=== PATIENT | female | born 1950 | race Caucasian/White ===

== ENCOUNTER 2024-01-26 12:19 | Emergency (ER) | payer MEDICARE, SELFPAY ==
[2024-01-26 12:24] VITALS: BP 151/85
[2024-01-26 13:13] VITALS: BMI 22.0
[2024-01-26 13:15] VITALS: BP 143/63
[2024-01-26 13:32] LABS: % Basophils 0.3 % (0-2); % Eosinophils 1.7 % (0-6); % Immature Granulocytes 0.1 % (0-0.5); % Lymphocytes 28.4 % (20.5-51.1); % Monocytes 9.5 % (1.7-9.3); Absolute Eosinophils 0.2 10^3/uL (0-0.7); Absolute Lymphocytes 2.6 10^3/uL (1.2-3.4); Absolute Monocytes 0.9 10^3/uL (0.1-0.6); Absolute Neutrophils 5.5 10^3/uL (1.4-6.5); Hematocrit 37.6 % (37.0-47.0); Hemoglobin 13.2 g/dL (12.0-16.0); Mean Corp Hgb Conc. 35.1 g/dL (33.0-37.0); Mean Platelet Volume 9.3 fL (7.4-10.4); Nucleated Red Blood Cells % 0 %; Platelet Count 286 10^3/uL (130-400); Red Cell Dist. Width 12.9 % (11.5-14.5); White Blood Cell Count 9.2 10^3/uL (4.8-10.8)
[2024-01-26 13:45] LABS: ALT (SGPT) 13 U/L (0-35); AST (SGOT) 24 U/L (14-36); Albumin 4.1 g/dl (3.5-5.0); Alkaline Phosphatase 77 U/L (38-126); Blood Urea Nitrogen 19 mg/dl (7-17); Calcium 9.8 mg/dl (8.4-10.2); Carbon Dioxide 26 mmol/L (22-30); Chloride 108 mmol/L (98-107); Estimated Creatinine Clearance 51 ml/min; Glucose 101 mg/dl (70-99); Potassium 4.1 mmol/L (3.5-5.1); Sodium 139 mmol/L (135-145); Total Bilirubin 0.4 mg/dl (0.2-1.3); Total Protein 6.7 g/dl (6.3-8.2); eGFR > 60.00
--- NOTE | 2024-01-26 13:56 | ED.GENMED ---
History of Present Illness
<Anjelica Fox PA-C - Last Filed: 01/27/24 12:59>
General
Chief Complaint: Bowel Problem
Source: patient
Exam Limitations: none
Time Seen by Provider: 01/26/24 13:11
Nursing documentation reviewed up to this point in time: agreed with
Travel History
Have you had any contact with someone who has COVID-19?: No
Do you have any symptoms of coronavirus? Fever > 100 degrees, chills, cough, shortness of breath, sore throat, loss of taste or smell, muscle aches, or headache?: No
History of Present Illness
History of Present Illness:
pt is a 73 y/o F with h/o BTL complicated by uterine injury, kiidney stones, smoking, vaping
here with abd bloating and consitpation for months, worsening
pt says she spends most of her days trying to get herself to poop and she usually only goes minimally . she has never tried any oral agents, but usually suppositories or enemas
she has never had a colonoscopy
she denies fever, chills, vomiting, nausea, cp, sob.
nothing different today but she is tired of feelign this way
has lack of appetite.
Past History
<Anjelica Fox PA-C - Last Filed: 01/27/24 12:59>
Past History
ED Past Medical History: Other (kidney stones)
ED Past Surgical History: Gynecological (BTL, uterine laceration)
Social History
Tobacco: Smoker
Alcohol: None
Drug: Marijuana
Personal: Single
Review of Systems
<[place] Rojas Last Filed: 01/27/24 12:59>
Review of Systems
Allergies reviewed?: Yes
All Other Systems: Not applicable
Phy Exam
<[place] Rojas Last Filed: 01/27/24 12:59>
Physical Exam
Physical Exam:
GENERAL: Alert , in no apparent distress
EYE: pupils equal and reactive
NECK: Supple
ENT: o/p clr, mmm.
CARDIAC: Regular rate and rhythm .
LUNGS: Clear breath sounds bilaterally, no acute respiratory distress, no wheezes/rales/rhonchi
ABDOMEN: Soft, mildly distended, nontender, no r/g, no cvat, normal bowel sounds
rectal: no fecal impaction, nontender, no hemrrhoids
NEUROLOGICAL: Alert and oriented, no focal neuro deficits
SKIN: Warm and dry, skin intact.
MUSCULOSKELETAL: No edema, well perfused.
PSYCH: Normal and appropriate interaction.
Course
<Anjelica Fox PA-C - Last Filed: 01/27/24 12:59>
Orders/Labs/Results
Orders:
Orders
01/26/24 13:22
Complete Blood Count/With Diff Urgent
Comprehensive Metabolic Panel Urgent
01/26/24 13:55
CT Abd/pel W Iv And Oral Contr Urgent
Comment: previous abd surgery
Reason For Exam: chroinc constipation, bloating, uncomfortable
Iohexol [Omnipaque] See Protocol PO NOW STA
Abnormal Lab Results
01/26/24
13:22
RBC 4.00 L 10^6/uL
(4.20-5.40)
MCH 33.0 H pg
(27.0-31.0)
Absolute Monos (auto) 0.9 H 10^3/uL
(0.1-0.6)
Monocytes % 9.5 H %
(1.7-9.3)
Chloride 108 H mmol/L
(98-107)
BUN 19 H mg/dl
(7-17)
Glucose 101 H mg/dl
(70-99)
01/26/24 13:22
01/26/24 13:22
Vital Signs
Initial and Last Documented VS:
Initial Vital Signs
Temp Pulse Resp BP Pulse Ox
98.7 F 88 18 151/85 98
01/26/24 12:24 01/26/24 12:24 01/26/24 12:24 01/26/24 12:24 01/26/24 12:24
Last Documented Vital Signs
Temp Pulse Resp BP Pulse Ox
98.7 F 88 18 143/63 94
01/26/24 12:24 01/26/24 12:24 01/26/24 12:24 01/26/24 13:15 01/26/24 16:00
<Kalli Hernandez, IMAGERY ANALYST - Last Filed: 01/26/24 17:46>
Orders/Labs/Results
Orders:
Orders
01/26/24 13:22
Complete Blood Count/With Diff Urgent
Comprehensive Metabolic Panel Urgent
01/26/24 13:55
CT Abd/pel W Iv And Oral Contr Urgent
Comment: previous abd surgery
Reason For Exam: chroinc constipation, bloating, uncomfortable
Iohexol [Omnipaque] See Protocol PO NOW STA
Abnormal Lab Results
01/26/24
13:22
RBC 4.00 L 10^6/uL
(4.20-5.40)
MCH 33.0 H pg
(27.0-31.0)
Absolute Monos (auto) 0.9 H 10^3/uL
(0.1-0.6)
Monocytes % 9.5 H %
(1.7-9.3)
Chloride 108 H mmol/L
(98-107)
BUN 19 H mg/dl
(7-17)
Glucose 101 H mg/dl
(70-99)
01/26/24 13:22
01/26/24 13:22
Vital Signs
Initial and Last Documented VS:
Initial Vital Signs
Temp Pulse Resp BP Pulse Ox
98.7 F 88 18 151/85 98
01/26/24 12:24 01/26/24 12:24 01/26/24 12:24 01/26/24 12:24 01/26/24 12:24
Last Documented Vital Signs
Temp Pulse Resp BP Pulse Ox
98.7 F 88 18 143/63 94
01/26/24 12:24 01/26/24 12:24 01/26/24 12:24 01/26/24 13:15 01/26/24 16:00
<Anjelica Fox PA-C - Last Filed: 01/27/24 12:59>
MDM/Problems Addressed
Differential Diagnosis Includes:
CONSTIPATION, COLITIS, OBSTRUCTION, MALIGNANCY
MDM/Problems Addressed:
73 y/o F with h/o chronic constipation fo rmonths, worsening
has not attempted oral laxatives
gets bloated with eating
dec appetite
no vomiting, fever, urinary sypmtoms
given age and RF, has never had colonoscopy, will CT.
anticipate this is constipation and pt needs better regimen
no fecal impaction.
<Kalli Hernandez NP - Last Filed: 01/26/24 17:46>
*Critical Care Note
Total Time (30-74mins, 75-104mins- exclusive of procedures): Not Applicable
<Kalli Hernandez NP - Last Filed: 01/26/24 17:46>
Update Note
Update Note:
CT results reviewed with patient and spouse. Recommend Miralax 17g bid, Dulcolax 5mg at bedtim. She is agreeable to plan. She was notified of findings of pulmonary and adrenal nodules. +smoker. WIll follow up with PCP. CT report faxed to PCP.
ED Attending Note
<Anjelica Fox PA-C - Last Filed: 01/27/24 12:59>
-
Portions of this chart may have been created with voice recognition software.� Occasional wrong word or��sound alike� substitutions may have occurred due to the inherent limitations of voice recognition software.
Discharge Plan
Departure
Patient Disposition: Home (Routine Discharge)
Date of Disposition: 01/26/24
Time of Disposition: 17:40
Patient with high blood pressure during this ER visit?: No
Condition: Good
Covid-19: Not Applicable
Discharge Problem:
Constipation
Instructions: Constipation, Adult (DC)
Prescriptions:
New
polyethylene glycol 3350 [Miralax] 17 gram powder in packet
17 g PO BID Qty: 14 0RF
bisacodyl [Dulcolax (bisacodyl)] 5 mg tablet,delayed release (DR/EC)
5 mg PO HS 2 Days Qty: 2 0RF
Referrals:
Sole Sutton CRNP [Family Provider] - Follow up in 2-3 days
Activity Restrictions/Additional Instructions:
As we discussed, you will need repeat CT scans to monitor your pulmonary and adrenal nodules. I copy of your CT report was faxed to your family doctor. Follow up with your family doctor this week.
Interventions
Interventions:
*Risk Screen - Suicide Last Done: 01/26/24 13:13
*General Assessment Last Done: 01/26/24 13:13
*Neglect/Abuse Screening Last Done: 01/26/24 13:13
ED- Fall Risk Assessment Last Done: 01/26/24 13:13
*ED COVID-19 Vaccine History Last Done: 01/26/24 13:13
*Nursing Disposition Last Done: 01/26/24 18:06
RB-Kavdlt-[id number] Assessment Last Done: 01/26/24 13:13
Discharge Date and Time
Discharge Date/Time: 01/26/24 18:07
[2024-01-26] MEDS: OMNIPAQUE 50 ML PO (13:58)
== END 2024-01-26 18:07 | disposition home or self-care (01) ==
LOC: EMR 12:19
PROVIDERS: EMERGENCY PHYSICIAN Emergency Medicine; FAMILY PHYSICIAN Nurse Practitioner Women's Health
DX: K59.00 Constipation, unspecified (principal); F17.200 Nicotine dependence, unspecified, uncomplicated; J43.9 Emphysema, unspecified; K59.09 Other constipation; Z87.442 Personal history of urinary calculi; Z98.51 Tubal ligation status
CPT/HCPCS: 99284; 74177; 80053; 85025; Q9967